=== PATIENT | male | born 2000 | race Asian ===

== ENCOUNTER 2024-08-21 18:30 | Emergency (ER) | payer OTHER ==
[~2024-08-21] VITALS: Ht 175.3 cm; Wt 56.7 kg
[2024-08-21 18:32] VITALS: BP 148/89; TEMP 98.3
[2024-08-21] MEDS ORDERED: FAMO20TA8 PO (18:59)
[2024-08-21 19:49] VITALS: O2SAT 99
== END 2024-08-21 19:50 | disposition home or self-care (01) ==
LOC: ER 18:44
DX: J02.9 Acute pharyngitis, unspecified (principal); K21.9 Gastro-esophageal reflux disease without esophagitis